=== PATIENT | female | born 1995 | race Caucasian/White ===

== ENCOUNTER 2023-05-09 09:09 | Observation (INO) | payer BC ==
[~2023-05-09] VITALS: Ht 167.6 cm; Wt 63.0 kg
[2023-05-09] VITALS (13 sets, daily range): BP systolic 98–125; BP diastolic 53–75; PULSE 75–97; TEMP 97.4–980
[2023-05-09 09:33] LABS: COLLECTION METHOD CLEAN CATCH
[2023-05-09] MEDS ORDERED: LR 1,000 ML IV ONE (10:00)
[2023-05-09] MEDS ORDERED: Pantoprazole 40 MG in NS 10 ML IV ONE (10:00)
[2023-05-09] MEDS ORDERED: Morphine 4 MG/ML VIAL IV ONE (10:00)
[2023-05-09] MEDS ORDERED: Ondansetron 4 MG/2 ML VIAL IV ONE (10:00)
[2023-05-09 10:08] LABS: PH 6.5 (5.0-8.5); URINE APPEARANCE Clear (CLEAR/HAZY); URINE COLOR Yellow (YELLOW); URINE GLUCOSE Negative (NEGATIVE); URINE PROTEIN(semi-quant) 1+ (NEGATIVE)
[2023-05-09 10:09] LABS: MUCOUS Present (NOT PRESENT); SQUAMOUS EPITHELIAL 0-2 /hpf (0-10); URINE BACTERIA Rare /hpf (NONE SEEN); URINE BLOOD 2+ (NEGATIVE); URINE KETONE TRACE (NEGATIVE); URINE NITRATE Negative (NEGATIVE); URINE UROBILINOGEN 0.2 E.U/dL (0.2-1.0)
[2023-05-09 10:35] LABS: BASO % 0.3 % (0.0-2.0); GRAN # 12.6 K/mm3 (1.4-6.5); GRAN % 87.3 % (42.2-75.2); HEMATOCRIT 41.6 % (37.0-47.0); HEMOGLOBIN 14.2 g/dl (12.5-16.0); LYMPH # 1.1 K/mm3 (1.2-3.4); LYMPH % 7.4 % (20.0-51.0); MEAN CELL VOLUME 88 fl (80.0-100.0); MEAN CORPUSCULAR HEMOGLOBIN 30 pg (27-31); MEAN CORPUSCULAR HGB CONC 34 g/dl (33.0-37.0); MEAN PLATELET VOLUME 9.4 fl (7.4-10.4); MONO # 0.7 K/mm3 (0.1-0.6); MONO % 4.6 % (1.7-9.3); PLATELET COUNT 345 K/mm3 (130-400); RED BLOOD COUNT 4.74 M/mm3 (4.10-5.30); REDCELL DISTRIBUTION WIDTH-CV 12.6 % (11.5-14.5)
[2023-05-09 10:46] LABS: BILIRUBIN,TOTAL 0.6 mg/dL (0.2-1.2); C-REACTIVE PROTEIN 1.18 mg/dL (0.00-0.50); CALCIUM 9.6 mg/dL (8.4-10.2); CREATININE, serum 0.69 mg/dL (0.57-1.11); POTASSIUM 3.6 mmol/L (3.5-4.5); TOTAL PROTEIN 7.9 gm/dL (6.2-8.1)
[2023-05-09] MEDS ORDERED: Iohexol 300 - 100 ML VIAL IV ONE (11:34)
[2023-05-09] MEDS ORDERED: NS 100 ML IV SCH (11:35)
[2023-05-09] MEDS ORDERED: ZOLOFT 50MG50 MG PO (12:05)
[2023-05-09] MEDS ORDERED: NIKKI1 TAB PO (12:06)
[2023-05-09] MEDS ORDERED: CLARITIN 1010 MG/TAB PO (12:07)
[2023-05-09] MEDS ORDERED: FLONASE NASAL S16 GM NS (12:08)
[2023-05-09] MEDS ORDERED: LR 1,000 ML IV SCH (14:15)
[2023-05-09] MEDS ORDERED: Morphine 4 MG/ML VIAL IV PRN (14:15)
[2023-05-09] MEDS ORDERED: Ondansetron 4 MG/2 ML VIAL IV PRN ×4 (14:15→18:00)
[2023-05-09] MEDS ORDERED: Indocyanine Green 6.25 MG in Water For Injection,Sterile 1.25 ML IV ONE (15:45)
[2023-05-09] MEDS ORDERED: Ondansetron 4 MG/2 ML VIAL ONE (15:56)
[2023-05-09] MEDS ORDERED: dexAMETHasone 10 MG/ML VIAL ONE (15:56)
[2023-05-09] MEDS ORDERED: fentaNYL 50 MCG/ML 2 ML VIAL ONE (15:56)
[2023-05-09] MEDS ORDERED: Rocuronium 50 MG/5 ML Multi-Dose VIAL ONE (15:56)
[2023-05-09] MEDS ORDERED: Lidocaine PF 2% (20 MG/ML) 5 ML VIAL ONE (15:56)
[2023-05-09] MEDS ORDERED: NS 10 ML IV ONE (15:56)
[2023-05-09] MEDS ORDERED: Ketorolac 30 MG/ML VIAL ONE (15:56)
[2023-05-09] MEDS ORDERED: Meperidine 50 MG/ML 1 ML VIAL IV PRN (16:30)
[2023-05-09] MEDS ORDERED: hydrALAZINE 20 MG/ML 1 ML VIAL IV PRN (16:30)
[2023-05-09] MEDS ORDERED: droPERidol 2.5 MG/ML 2 ML VIAL IV PRN (16:30)
[2023-05-09] MEDS ORDERED: HYDROmorphone 2 MG/1 ML VIAL IV PRN (16:30)
[2023-05-09] MEDS ORDERED: Promethazine 25 MG/ML 1 ML VIAL IV PRN (16:30)
[2023-05-09] MEDS ORDERED: fentaNYL 50 MCG/ML 2 ML VIAL IV PRN (16:30)
--- NOTE | 2023-05-09 16:45 | NUR ---
Pt admitted to room 359 from the ED with diagnosis of cholelithiasis. Pt reported RUQ/back pain, rating pain 7/10. Morphine administered IV and patient reported pain decreased to 4/10. Dr. Palmer consulted. Pt to OR via bed at approximately 1630 with LR at TKO.
[2023-05-09] MEDS ORDERED: ePHEDrine 50 MG/ML VIAL ONE (17:08)
[2023-05-09] MEDS ORDERED: Topical Skin Adhesive 1 EACH (1 ML) TOP ONE (17:31)
[2023-05-09] MEDS ORDERED: levoFLOXacin 500 MG TAB PO SCH (17:56)
[2023-05-09] MEDS ORDERED: HYDROmorphone 0.5 MG/0.5 ML SYRINGE IV PRN (18:00)
[2023-05-09] MEDS ORDERED: oxyCODONE 5 MG TAB PO PRN (18:00)
[2023-05-09] MEDS ORDERED: Naloxone 0.4 MG/ML VIAL IV PRN (18:00)
[2023-05-09] MEDS ORDERED: Acetaminophen 500 MG TAB PO SCH (18:53)
--- NOTE | 2023-05-09 19:21 | NUR ---
Pt returned from PACU at approximately 1830. VSS. Reports pain 10/01. Warm blanket provided to abdomen. Incision sites x5 CDI. Fiance at bedside.
[2023-05-10] VITALS (8 sets, daily range): BP systolic 98–104; BP diastolic 62–68; PULSE 66–81; TEMP 97.9–98.3
--- NOTE | 2023-05-10 00:14 | NUR ---
Patient assessed around 2029. Patient up going to the bathroom at that time. Had two surgical sites with minimal blood, one below belly button, and the one to the right of belly button. Bandaid applied to areas. Bruising around sites. BSAx4, not passing gas at this time. Peripheral INT to right wrist. Tolerating oral intake, D/C'd IV fluids. Reported level 8 pain to abdomen. Given PRN Roxicodone. Denies SOB and dyspnea. LS CTA. HRR. Voices no questions, needs, or concerns at that time. In bed with call light within reach.
--- NOTE | 2023-05-10 06:37 | NUR ---
Patient given scheduled APAP and PRN Roxicodone as requested for pain during the night. Voices no further questions, needs, or concerns at this time. In bed with call light within reach.
--- NOTE | 2023-05-10 08:30 | NUR ---
Assessment completed. Pt reports abominal pain, rating pain 5/10. Scheduled Tylenol administered.
--- NOTE | 2023-05-10 09:14 | NUR ---
Assessment complete. Reports abominal pain 08/01 but declines offer for pain medicaton. Encouraged patient to order breakfast and to get OOB and ambulate this morning. Fiance at bedside.
[2023-05-10] MEDS ORDERED: NORCO 325 MG-51 TAB PO (13:25)
--- NOTE | 2023-05-10 14:52 | NUR ---
Discharge instructions reviewed with patient- verbalizes understanding. INT to RW d/c'd with cath tip intact. Pt escorted to private vehicle via w/c and discharged home with mason.
== END 2023-05-10 14:54 | disposition home or self-care (01) ==
LOC: COL.ER 09:09 → MEDICAL 12:30
PROVIDERS: Family Medicine; ADMIT Surgery
DX: K80.12 Calculus of gallbladder with acute and chronic cholecystitis without obstruction (principal); K82.A1 Gangrene of gallbladder in cholecystitis
CPT/HCPCS: C9113; G0378; J0690; J1100; J1885; J2270; J2405; J2543; J2704; J3010; J7120; Q9967